=== PATIENT | male | born 1950 | race Caucasian/White ===

== ENCOUNTER 2017-10-24 20:29 | Observation (INO) | payer OTHER, MEDICARE ==
[~2017-10-24] VITALS: Ht 177.8 cm; Wt 72.6 kg
[~2017-10-24 20:29] MED LIST: ACEPHEN650 MG PR; APAP325 MG PO; BISAC-EVAC10 MG PR; CLONAZEPAM0.5 MG PO; CLOZAPINE100 MG PO; CLOZAPINE200 M1 PO; CLOZARIL100 M1 PO; DULCOLAX5 M1 PO; DULCOLAX5 MG PO; ECOTRIN81 MG PO; FINASTERIDE5 MG PO; FLEET ENEMA 131 UNIT RC; LACTULOSE10 GM/152 PO; LACTULOSE10 GM/153 PO; LIPITOR 10MG10 MG PO; LITHIUM CARBON300 MG PO; MAALOX 225 MG/360 ML PO; MELATONIN3 MG PO; MILK OF MAGNESI30 ML PO; MIRALAX17 GM PO; MULTIVITAMIN1 TAB PO; NIACIN500 MG PO; OLANZAPINE15 M1 PO; OLANZAPINE20 MG PO; OXCARBAZEPINE600 MG PO; PRILOSEC OTC20 MG PO; PROPRANOLOL HCL20 MG PO; REMERON15 M3 PO; SENNA8.6 MG PO; ZYPREXA15 MG PO
--- NOTE | 2017-10-24 20:51 | ED NEURO DEFICIT/STROKE ---
History of Present Illness General Chief Complaint: Neuro Symptoms/ Deficit Stated Complaint: BIBA, ?STROKE Source: patient, EMS, facility Exam Limitations: dementia Allergies Coded Allergies: Penicillins (UNKNOWN 12/11/15) tuberculin, purified protein deriva (From TUBERSOL) (UNKNOWN 12/11/15) Reconcile Medications Acetaminophen (Acephen) 650 MG SUP 1 SUPP ND DAILY PRN PAIN/TEMP > 101 ( Reported) Acetaminophen (Apap) 325 MG TAB 650 MG PO Q4H PRN PAIN/TEMP>101 (Reported) Aspirin (Ecotrin) 81 MG ECT 1 TAB PO DAILY HEART/BLOOD (Reported) Atorvastatin (Atorvastatin Calcium) 10 MG TAB 10 MG PO 1700 CHOLESTEROL ( Reported) Bisacodyl (Bisac-Evac) 10 MG SUP 1 SUPP ND DAILY PRN NO BM IF MOM INEFFECTIVE (Reported) Bisacodyl (Dulcolax) 5 MG TABLET.DR 2 TAB PO BID CONSTIPATION (Reported) Clonazepam 0.5 MG TAB 2 TAB PO BID MENTAL HEALTH (Reported) Clozapine 200 MG TABLET 2 TAB PO QPM MENTAL HEALTH (Reported) Clozapine (Clozaril) 100 MG TABLET 1.5 TAB PO DAILY MENTAL HEALTH (Reported) Finasteride 5 MG TAB 1 TAB PO DAILY BPH (Reported) Fleet Enema (Fleet Enema 135 Ml) 1 UNIT LIQ 1 E RC DAILY PRN GI (Reported) Lactulose 10 GM/15 ML SOLUTION 30 ML PO EOD CONSTIPATION (Reported) Lactulose 10 GM/15 ML SOLUTION 30 ML PO QAM PRN NO BOWEL MOVEMENT (Reported) Acequia Carbonate 300 MG CAP 1 CAP PO BID MENTAL HEALTH (Reported) Magnesium Hydroxide (Milk Of Magnesia 30ML) 30 ML UDC 30 ML PO DAILY GI - NO BM IN 3 DAYS (Reported) Mirtazapine (Remeron) 15 MG TAB.RAPDIS 1 TAB PO QPM MENTAL HEALTH (Reported) Multivitamin (Multiple Vitamins) 1 TAB TAB 1 TAB PO DAILY SUPPLEMENT ( Reported) Niacin 500 MG TAB 1 TAB PO DAILY SUPPLEMENT (Reported) Olanzapine 15 MG TABLET 0.5 TAB PO QPM MENTAL HEALTH (Reported) Omeprazole (Prilosec Otc) 20 MG TCP 1 TAB PO DAILY GI (Reported) Oxcarbazepine 600 MG TAB 1 TAB PO BID SEIZURES (Reported) Polyethylene Glycol 3350 (Miralax) 17 GM PWD 17 GM PO BID GI (Reported) mix with water, juice, soda, coffee or tea PROPRANOLOL HCL (Propranolol HCl) 20 MG TAB 1 TAB PO BID UNKNOWN (Reported) SENNOSIDES (Senna) 8.6 MG TAB 2 TAB PO BID GI (Reported) Triage Nurses Notes Reviewed? yes Onset: Gradual Duration: hour(s): Timing: single episode today Severity: moderate HPI: 67YO male with hx of dementia, seizure disorder, HTN, subdural hematoma presents to ED BIBA for slurred speach and facial droop. Patient from assisted living facility. Symptoms are detected when patient was eating dinner around 5:30 PM. Patient was drooling with slurred speech and left-sided facial droop. Patient also appeared to be slumped over to the left side and neglecting his left side. Patient was last known to be well around 3 PM today during shift change. Patient currently reports no pain. He denies headache, abdominal pain, chest pain. HPI is limited due to patient's dementia. (Ginna Coppola) Vital Signs & Intake/Output Vital Signs & Intake/Output Vital Signs Date Time Temp Pulse Resp B/P B/P Pulse O2 O2 Flow FiO2 Mean Ox Delivery Rate 10/24 2222 75 20 151/82 99 Room Air Room Air 10/24 2134 98 Room Air Room Air 10/24 2133 97.0 78 18 139/92 98 Room Air Room Air 10/24 2032 97.1 81 20 139/92 100 Nasal 2.0L Cannula ED Intake and Output 10/25 0000 10/24 1200 Intake Total Output Total Balance Patient 160 lb Weight Weight Estimated Measurement Method (Agata BAHENA,Solitario Infante) Past History Travel History Traveled to [place] past 21 day No Medical History Any Pertinent Medical History? see below for history Neurological: dementia, seizure, DELRIUM TREMORS BRAIN BLEED Renal: benign prost hyperplasia Psychiatric: SCHIZOPHRENIA History of MRSA: No History of VRE: No History of CDIFF: No Surgical History Surgical History: CRANIOTOMY Psychosocial History Who do you live with Patient/Self Services at Home None What is your primary language Serbian Family History Hx Contributory? No (Ginna Coppola) Review of Systems Review of Systems Constitutional: Reports: no symptoms. EENTM: Reports: see HPI. Respiratory: Reports: no symptoms. Cardiovascular: Reports: no symptoms. GI: Reports: no symptoms. Genitourinary: Reports: no symptoms. Musculoskeletal: Reports: see HPI. Skin: Reports: no symptoms. Neurological/Psychological: Reports: see HPI. Hematologic/Endocrine: Reports: no symptoms. Immunologic/Allergic: Reports: no symptoms. All Other Systems: Reviewed and Negative (Ginna Coppola) Physical Exam Physical Exam General Appearance: well developed/nourished, alert, awake Head: atraumatic, normal appearance Eyes: Bilateral: normal appearance, PERRL, EOMI. Ears, Nose, Throat: moist mucous membrane, hearing grossly normal, pharynx normal Neck: normal inspection, supple, full range of motion Respiratory: normal breath sounds, no respiratory distress, lungs clear Cardiovascular: regular rate/rhythm Peripheral Pulses: 2+ radial (R), 2+ radial (L), 2+ dorsalis pedis (R), 2+ dorsalis pedis (L) Gastrointestinal: normal bowel sounds, soft, non-tender, no organomegaly Extremities: generalized weakness of all extremities however can move extremities against gravity equally bilaterally Psychiatric: awake, alert, oriented to self only Cranial Nerves: normal hearing, PERRL, dysarthria, left sided facial droop Coordination/Gait: tremor bilateral upper extremities Skin: intact, normal color, warm/dry Core Measures CVA/TIA Diagnosis: Yes NIH Stroke Scale NIH Stroke Scale Response Value Level of Consciousness alert 0 LOC Questions answers both correctly 0 LOC Commands obeys both correctly 0 Best Gaze normal 0 Facial Paresis minor 1 Motor Arm - Left no drift 0 Motor Arm - Right no drift 0 Motor Leg - Left no drift 0 Motor Leg - Right no drift 0 Limb Ataxia no ataxia 0 Sensory normal 0 Best Language no aphasia 0 Dysarthria mild/mod slurring words 1 Extinction and Inattention no neglect 0 Total 2 Date Last Known Well: 10/24/17 Time Last Known Well: 1500 Symptom Start Date: 10/24/17 Symptom Start Time: 1730 Reason tPA not ordered Medical Contraindication Swallow Evaluation Pass Swallow eval date 10/24/17 Swallow eval time 2247 Sepsis Present: No Sepsis Focused Exam Completed? No (Ginna Coppola) Progress Differential Diagnosis: Parmar's Palsy, drug intoxication, electrolyte imbalance, encephalitis, intracranial Hem., intracranial mass/tumor, seizure disorder, stroke Diagnostic Imaging: Viewed by Me: CT Scan. Discussed w/RAD: CT Scan. Radiology Impression: PATIENT: LUANN VANEGAS PRESENT AGE: 67 PATIENT ACCOUNT NO: [id number] : 51 LOCATION: [facility] ORDERING PHYSICIAN: Ginna CHAMBERS SERVICE DATE: 10/24/17 EXAM TYPE: CAT - CT HEAD WO IV CONTRAST EXAMINATION: CT HEAD WITHOUT CONTRAST CLINICAL INFORMATION: Facial droop. COMPARISON: CT head 03/26/2016 TECHNIQUE: Contiguous axial imaging was performed from the skull base to vertex without intravenous administration of contrast. DLP: 618.64 mGy-cm FINDINGS: There is no evidence of acute intracranial hemorrhage or territorial infarction. No abnormal mass effect or midline shift is seen. Stevenson to white matter differentiation is well preserved. No extra-axial fluid collections are identified. There is age- appropriate atrophy with mild prominence of the ventricles and the sulci and hypodensity of the periventricular white matter due to chronic small vessel ischemic disease. There is vascular calcifications of the internal carotid arteries . The osseous structures and soft tissues are normal. The mastoid air cells and visualized portions of the paranasal sinuses are well aerated. IMPRESSION: No acute intracranial pathology. DICTATED BY: Navjot Steward MD DATE/ TIME DICTATED:10/24/172117 INVESTIGATOR UTILITY BILL COMPLAINTS:DARWIN DATE/TIME TRANSCRIBED: 10/24/172117 CONFIDENTIAL, DO NOT COPY WITHOUT APPROPRIATE AUTHORIZATION. < Electronically signed in Other Vendor System> SIGNED BY: Navjot Steward MD 2123 Initial ED EKG: sinus rhythm @79bpm, borderline LAD, nonspecific ST changes, t wave flattening Prior EKG: unchanged (03/25/16) (Ruth CHAMBERS,Ginna Cr) Plan of Care: Orders Procedure Date/time Status Nothing by Mouth 10/25 B Active BASIC ELECTROLYTES PLUS BUN&CR 10/25 599 Active Teach/Educate 10/25 233 Active Pain Treatment and Response 10/25 233 Active Nutritional Intake, Monitor 10/25 233 Active Isolation 10/25 233 Active Patient Care Conference 10/25 233 Active Activity/Ambulation 10/25 233 Active LITHIUM 10/25 204 Active SWALLOW EVALUATION 10/25 199 Active PT Evaluate & Treat 10/25 199 Active Pathway - chart 10/25 199 Active House Staff 10/25 199 Active Code Status 10/25 199 Active Patient Data 10/25 32 Active Saline Lock 10/[address] in observation 10/25 28 Active Misc Message 10/25 28 Active ED Holding Orders 10/25 28 Active Vital Signs 10/25 28 Active Code Status 10/25 28 Complete VTE Mechanical Prophylaxis 10/25 UNK Active ECHOCARDIOGRAM 10/25 UNK Active RAPID VIRAL INFLUENZA A 10/24 2234 Active Intake & Output 10/24 2132 Active NIH Stroke Scale 10/24 2102 Active TROPONIN LEVEL 10/24 2040 Complete PARTIAL THROMBOPLASTIN TIME 10/24 2040 Active PROTHROMBIN TIME 10/24 2040 Active COMPREHENSIVE METABOLIC PANEL 10/24 2040 Complete CBC WITHOUT DIFFERENTIAL 10/24 2040 Complete EKG 10/24 2040 Active Current Medications Sig/Solange Start time Last Medication Dose Stop Time Status Admin Olanzapine 7.5 MG QPM 10/25 2200 AC (Zyprexa 2.5MG) Enoxaparin Sodium 40 MG DAILY 10/25 1000 AC (Lovenox) Finasteride 5 MG DAILY 10/25 1000 AC (Proscar) Divalproex Sodium 500 MG Q8 10/25 0600 AC (Depakote) Acetaminophen 325 MG Q4P PRN 10/25 214 AC (Tylenol) Acetaminophen 1,000 MG Q6P PRN 10/25 214 AC (Ofirmev) N/A 1 UNIT (No Carrier) Bisacodyl 10 MG DAILY PRN 10/25 214 AC (Dulcolax Supp) Non-Formulary 0 SEE ADMIN CRITERIA 10/25 214 UNVr Medication (NON FORMULARY) Sodium Phosphate 1 UNIT ONCE PRN 10/25 214 AC Laboratory Tests 10/24/172102: Anion Gap 15, Estimated GFR > 60, BUN/Creatinine Ratio 21.3, Glucose 107 H, Calcium 10.1, Total Bilirubin 0.4, AST 22, ALT 36, Alkaline Phosphatase 71, Troponin I < 0.01, Total Protein 7.5, Albumin 4.3, Globulin 3.2, Albumin/ Globulin Ratio 1.3, PT Pending, INR Pending, APTT Pending, CBC w Diff NO MAN DIFF REQ, RBC 4.60 L, MCV 93.9, MCH 30.6, RDW 15.1 H, MPV 8.0, Gran % 74.9, Lymphocytes % 17.5 L, Monocytes % 7.1, Eosinophils % 0.2, Basophils % 0.3, Absolute Granulocytes 4.9, Absolute Lymphocytes 1.2, Absolute Monocytes 0.5, Absolute Eosinophils 0, Absolute Basophils 0, PUBS MCHC 32.6 L Microbiology 10/24 2257 NASOPHARYN: Influenza Virus A & B Rapid Smear - RECD Dr. Parmar present to see and evaluate patient. Given symptom onset >4.5 hours ago and low NIH stroke scale this patient is not a TPA candidate. Spoke with Dr. June regarding this patient - Not TPA candidate. He recommends aspirin and carotid US in the morning. Patient passed swallow evaluation. The patient was discussed with Dr. Olson regarding telemetry admission for likely CVA. (Ginna Coppola) (Agata BAHENA,Solitario Infante) Departure Departure Disposition: STILL A PATIENT Condition: Stable Clinical Impression Primary Impression: CVA (cerebral vascular accident) Referrals: Malia Valente MD (PCP/Family) Departure Forms: Customer Survey General Discharge Information Admission Note Spoke With: Tan Olson MD Documentation of Exam: Documentation of any treatments & extenuating circumstances including Concerns Regarding Discharge (functional status, medication knowledge or non-compliance, living conditions, etc.) that warrant an admission rather than observation: [ Likely CVA with left-sided facial droop and slurred speech requiring neurology consults, aspirin, carotid ultrasound tomorrow, telemetry monitoring] (Ginna Coppola) PA/ENROLLMENT MANAGER Co-Sign Statement Statement: ED Attending supervision documentation- [] I saw and evaluated the patient. I have also reviewed all the pertinent lab results and diagnostic results. I agree with the findings and the plan of care as documented in the PA's/ENROLLMENT MANAGER's documentation. Patient presents for evaluation of a possible stroke that occurred sometime after 3 PM. Patient currently resides in an extended care facility and he apparently was last known to be normal during shift change manager at 3:00 this afternoon. Physical examination reveals a mild left facial droop. [] I have reviewed the ED Record and agree with the PA's/ENROLLMENT MANAGER's documentation. [] Additions or exceptions (if any) to the PAs/ENROLLMENT MANAGER's note and plan are summarized below: [] (Agata BAHENA,Solitario Infante) PA/ENROLLMENT MANAGER Co-Sign Statement Statement: ED Attending supervision documentation- [x] I saw and evaluated the patient. I have also reviewed all the pertinent lab results and diagnostic results. I agree with the findings and the plan of care as documented in the PA's/ENROLLMENT MANAGER's documentation. 10/24/17, 23:30.... pt with non focal exam presently, signs and symptoms concerning for tia... pt to be placed in obs. [] I have reviewed the ED Record and agree with the PA's/ENROLLMENT MANAGER's documentation. [] Additions or exceptions (if any) to the PAs/ENROLLMENT MANAGER's note and plan are summarized below: [] (Haily BAHENA,Grant العلي)
[2017-10-24 21:17] LABS: ABSOLUTE BASOPHIL COUNT 0 /CUMM (0.0-0.2); ABSOLUTE EOSINOPHIL COUNT 0 /CUMM (0.0-0.7); ABSOLUTE GRANULOCYTE CT 4.9 /CUMM (1.4-6.5); ABSOLUTE LYMPH COUNT 1.2 /CUMM (1.2-3.4); ABSOLUTE MONOCYTE COUNT 0.5 /CUMM (0.10-0.60); BASOPHIL % 0.3 % (0.0-2.0); EOSINOPHIL % 0.2 % (0-5); GRANULOCYTE % 74.9 % (42.2-75.2); HEMATOCRIT 43.2 % (42-52); MEAN CORPUSCULAR HGB 30.6 PG (27.0-31.0); MEAN CORPUSCULAR HGB CONC 32.6 G/DL (33.0-37.0); MEAN CORPUSCULAR VOLUME 93.9 FL (80.0-94.0); PLATELET COUNT 151 /CUMM (130-400); RBC DISTRIBUTION WIDTH 15.1 % (11.5-14.5); WHITE BLOOD CELL COUNT 6.6 /CUMM (4.8-10.8)
--- NOTE | 2017-10-24 21:24 | CT SCAN REPORT ---
EXAMINATION: CT HEAD WITHOUT CONTRAST CLINICAL INFORMATION: Facial droop. COMPARISON: CT head 03/26/2016 TECHNIQUE: Contiguous axial imaging was performed from the skull base to vertex without intravenous administration of contrast. DLP: 618.64 mGy-cm FINDINGS: There is no evidence of acute intracranial hemorrhage or territorial infarction. No abnormal mass effect or midline shift is seen. Stevenson to white matter differentiation is well preserved. No extra-axial fluid collections are identified. There is age-appropriate atrophy with mild prominence of the ventricles and the sulci and hypodensity of the periventricular white matter due to chronic small vessel ischemic disease. There is vascular calcifications of the internal carotid arteries . The osseous structures and soft tissues are normal. The mastoid air cells and visualized portions of the paranasal sinuses are well aerated. IMPRESSION: No acute intracranial pathology.
--- NOTE | 2017-10-24 22:02 | RADIOLOGY REPORT ---
EXAMINATION: XR PORTABLE CHEST CLINICAL INFORMATION: Altered mental status. COMPARISON: Chest x-ray 03/25/2016 TECHNIQUE: Portable frontal view of the chest was obtained. 9:13 PM FINDINGS: Chin overlies the left lung apex. Patient rotated to left. Lung volume low. No pulmonary vascular congestion. No infiltrate or pleural effusion. IMPRESSION: No acute abnormality of chest.
--- NOTE | 2017-10-25 00:49 | History & Physical ---
Rosemary BAHENA,Judy 10/25/17 0049: General Information and HPI MD Statement: I have seen and personally examined LUANN VANEGAS and documented this H&P. The patient is a 67 year old M who presented with a patient stated chief complaint of []. Exam Limitations: dementia, poor historian History of Present Illness: Patient is a 67-year-old male with past medical history of paranoid schizophrenia, primary seizure disorder, status epilepticus 2014 requiring intubation, subdural hematoma, delirium, dementia, hypertension, anxiety disorder, hypertension, hyperlipidemia presents this admission from the assisted living facility after being found to have slurred speech and facial droop. Patient has dementia and is a poor historian. History was obtained from the records. Patient was found to have drooling with slurred speech at approximately 5:30 this evening at the time of dinner noted by the assisted living facility staff. Patient had food coming out of the left side of his mouth. Per documentation patient had left arm and hand weakness and was neglecting his left side. Patient was last seen normal and in his usual state of health at approximately 3 PM. Patient denies any chest pain, headache, visual disturbances, numbness/tingling, pain, nausea/vomiting, abdominal pain. Although patient states states that he does not have the aforementioned symptoms is unclear if he completely comprehends the questions asked. Per notes patient has both fecal and urinary incontinence. Last bowel movement was on 10/24/17. Past medical history: As above Social history: Patient lives at a unknown assisted living facility, is on assist 2 for transfers, diet is a diabetic diet with ground meat and thin liquids Allergies: Penicillin, Tubersol On admission: Vitals: MAXIMUM TEMPERATURE: 97.1, heart rate: 75-81, respiration rate: 18-20, blood pressure: 139/92-151/82, 98-100% on room air Labs were all within normal limits Imaging: CT head was negative for any acute findings Chest x-ray: Was negative for any acute pathology EKG: Normal sinus rhythm at a rate of 79, left axis deviation, QTc: 464, unchanged from previous with no new ST or T-wave changes Allergies/Medications Allergies: Coded Allergies: Penicillins (UNKNOWN 12/11/15) tuberculin, purified protein deriva (From TUBERSOL) (UNKNOWN 12/11/15) Home Med list Acetaminophen (Acephen) 650 MG SUP 1 SUPP KS DAILY PRN PAIN/TEMP > 101 ( Reported) Acetaminophen (Apap) 325 MG TAB 650 MG PO Q4H PRN PAIN/TEMP>101 (Reported) Aspirin (Ecotrin) 81 MG ECT 1 TAB PO DAILY HEART/BLOOD (Reported) Atorvastatin Calcium 40 MG TABLET 1 TAB PO DAILY HEART Bisacodyl (Bisac-Evac) 10 MG SUP 1 SUPP KS DAILY PRN NO BM IF MOM INEFFECTIVE (Reported) Bisacodyl (Dulcolax) 5 MG TABLET.DR 2 TAB PO BID CONSTIPATION (Reported) Clonazepam 0.5 MG TAB 2 TAB PO BID MENTAL HEALTH (Reported) Clopidogrel Bisulfate (Plavix) 75 MG TABLET 1 TAB PO DAILY TIA Clozapine 200 MG TABLET 2 TAB PO QPM MENTAL HEALTH (Reported) Clozapine (Clozaril) 100 MG TABLET 1.5 TAB PO DAILY MENTAL HEALTH (Reported) Finasteride 5 MG TAB 1 TAB PO DAILY BPH (Reported) Fleet Enema (Fleet Enema 135 Ml) 1 UNIT LIQ 1 E RC DAILY PRN GI (Reported) Lactulose 10 GM/15 ML SOLUTION 30 ML PO EOD CONSTIPATION (Reported) Lactulose 10 GM/15 ML SOLUTION 30 ML PO QAM PRN NO BOWEL MOVEMENT (Reported) [place] Carbonate 300 MG CAP 1 CAP PO BID MENTAL HEALTH (Reported) Magnesium Hydroxide (Milk Of Magnesia 30ML) 30 ML UDC 30 ML PO DAILY GI - NO BM IN 3 DAYS (Reported) Mirtazapine (Remeron) 15 MG TAB.RAPDIS 1 TAB PO QPM MENTAL HEALTH (Reported) Multivitamin (Multiple Vitamins) 1 TAB TAB 1 TAB PO DAILY SUPPLEMENT ( Reported) Niacin 500 MG TAB 1 TAB PO DAILY SUPPLEMENT (Reported) Olanzapine 15 MG TABLET 0.5 TAB PO QPM MENTAL HEALTH (Reported) Omeprazole (Prilosec Otc) 20 MG TCP 1 TAB PO DAILY GI (Reported) Oxcarbazepine 600 MG TAB 1 TAB PO BID SEIZURES (Reported) Polyethylene Glycol 3350 (Miralax) 17 GM PWD 17 GM PO BID GI (Reported) mix with water, juice, soda, coffee or tea PROPRANOLOL HCL (Propranolol HCl) 20 MG TAB 1 TAB PO BID UNKNOWN (Reported) SENNOSIDES (Senna) 8.6 MG TAB 2 TAB PO BID GI (Reported) Past History Travel History Traveled to [place] past 21 day No Medical History Neurological: dementia, seizure, DELRIUM TREMORS BRAIN BLEED Renal: benign prost hyperplasia Psychiatric: SCHIZOPHRENIA History of MRSA: No History of VRE: No History of CDIFF: No Surgical History Surgical History: CRANIOTOMY Past Family/Social History Psychosocial History Services at Home: None Review of Systems Review of Systems Constitutional: Reports: no symptoms, see HPI. EENTM: Reports: no symptoms, see HPI. Cardiovascular: Reports: no symptoms, see HPI. Respiratory: Reports: no symptoms, see HPI. GI: Reports: no symptoms, see HPI. Genitourinary: Reports: no symptoms, see HPI. Musculoskeletal: Reports: no symptoms, see HPI. Skin: Reports: no symptoms, see HPI. Neurological/Psychological: Reports: tremors. Exam & Diagnostic Data Last 24 Hrs of Vital Signs/I&O Vital Signs Date Time Temp Pulse Resp B/P B/P Pulse O2 O2 Flow FiO2 Mean Ox Delivery Rate 10/242 75 20 151/82 99 Room Air Room Air 10/24 2134 98 Room Air Room Air 10/24 2133 97.0 78 18 139/92 98 Room Air Room Air 10/243 97.1 81 20 139/92 100 Nasal 2.0L Cannula Intake & Output 10/25 0800 10/25 0000 10/24 1600 Intake Total Output Total Balance Patient 160 lb 160 lb Weight Weight Estimated Measurement Method Physical Exam General Appearance Alert, Cooperative, No Acute Distress HEENT Atraumatic, PERRLA, EOMI, Mucous Membr. moist/pink Cardiovascular Regular Rate, Normal S1, Normal S2, No Murmurs Lungs Clear to Auscultation, Normal Air Movement Abdomen Normal Bowel Sounds, Soft, No Tenderness Neurological Normal Speech, Normal Tone, Sensation Intact, Cranial Nerves 3-12 NL, Reflexes 2+, motor strength in upper and lower extremities 4/5 Extremities No Clubbing, No Cyanosis, No Edema, Normal Pulses, No Tenderness/ Swelling Last 24 Hrs of Labs/Yann: Laboratory Tests 10/25/17 0205: [place] Cancelled 10/24/172102: Anion Gap 15, Estimated GFR > 60, BUN/Creatinine Ratio 21.3, Glucose 107 H, Calcium 10.1, Total Bilirubin 0.4, AST 22, ALT 36, Alkaline Phosphatase 71, Troponin I < 0.01, Total Protein 7.5, Albumin 4.3, Globulin 3.2, Albumin/ Globulin Ratio 1.3, PT 12.7 H, INR 1.21 H, APTT 32, CBC w Diff NO MAN DIFF REQ , RBC 4.60 L, MCV 93.9, MCH 30.6, RDW 15.1 H, MPV 8.0, Gran % 74.9, Lymphocytes % 17.5 L, Monocytes % 7.1, Eosinophils % 0.2, Basophils % 0.3, Absolute Granulocytes 4.9, Absolute Lymphocytes 1.2, Absolute Monocytes 0.5, Absolute Eosinophils 0, Absolute Basophils 0, PUBS MCHC 32.6 L, [place] 0.7 Microbiology 10/24 2977 NASOPHARYN: Influenza Virus A & B Rapid Smear - COMP Assessment/Plan Assessment: Patient is a 67-year-old male with past medical history significant for subdural hematoma, primary seizure disorder on depakote and oxycarbamazapine and paranoid schizophrenia and anxiety disorder on multiple antipsychotics and anxiolytic presenting this admission with transient left-sided weakness, facial droop which resolved prior to this admission. Patient will be observed on the telemetry floor for the following: Left sided hemiparesis and hemiplegia: Likely etiologies of these symptoms include transient ischemic attack, possible seizure, polypharmacy from multiple antipsychotics, antiepileptic, anxiolytic medications for paranoid schizophrenia , seizure disorder and anxiety disorder. - Monitor on telemetry for possible A. fib/flutter - Neurology consult - Neurochecks every 4 hours - Continue Depakote and Oxycarbamazapine - Obtain a depakote, lithium and oxycarbamazapine level - Continue olanzapine, hold clozapine - Continue clonazepam - Psych consult in AM to reevaluate psych meds - Seizure prophylaxis - Patient passed bedside swallow. NPO pending formal swallow evaluation and confirmation of diet of ground meet and thin liquids - PT/OT consult - Patient received aspirin 325mg in the ED, continue aspirin 81mg daily - Continue atorvastatin DVT PPx: Heparin SC Diet: NPO Code: DNR As Ranked By This Provider Problem List: 1. TIA (transient ischemic attack) 2. Seizure Core Measures/Misc (07/02) Acute Coronary Syndrome ACS Diagnosis: No Congestive Heart Failure Congestive Heart Failure Diagnosis No Cerebrovascular Accident CVA/TIA Diagnosis: Yes NIH Stroke Scale: Total 0 Date Last Known Well: 10/24/17 Time Last Known Well: 1500 Symptom Start Date: 10/24/17 Symptom Start Time: 1730 Reason tPA not ordered Medical Contraindication Swallow Evaluation Pass Current/Past Hx AFib/AFlutter No No Anticoagulant d/t Medical Contraindication VTE (View Protocol) VTE Risk Factors Age>40 No Mechanical VTE Prophylaxis d/t N/A MechProphylax Ordered No VTE Pharm Prophylaxis d/t NA PharmProphylax ordered Sepsis (View protocol) Sepsis Present: Karina Kenney 10/25/17 0345: General Information and HPI MD Statement: I have seen and personally examined STEFFILUANN BAIRD and documented this H&P. The patient is a 67 year old M who presented with a patient stated chief complaint of [unresponsiveness and allegedly reported left-sided hemiparesis]. Source of Information: W 10 and reports from Resident Review Statement Resident Statement: examined this patient, discussed with photo intern, agreed with photo intern, discussed with family, reviewed EMR data (avail), discussed with nursing , discussed with case mgmt, reviewed images, amended to note Other Findings: Labs, images, patient's documents and past medical history were reviewed. I agreed with all above. Briefly Past medical history: Schizophrenia paranoid type; primary seizure disorder and history of status epilepticus which required intubation in 2013; history of subdural hematoma, BPH, hyperlipidemia, hypertension This is a 67-year-old gentleman who was brought in by ambulance from [facility] for sudden onset left-sided hemiparesis and facial droop. Patient is not able to provide HPI. According to documents from SNF, yesterday around 5 PM patient was seen to have left-sided facial droop and left arm and left hand weakness. He was also noted not to be able to chew and keep the food in his mouth. His vitals at the time temperature of 98.4, pulse 88, respiratory 18, blood pressure 140/76, O2 saturation 98% in room. Patient arrived in the emergency room at 20:33 10/24/2017. At the time of admission at 11 PM 10/24/2016 patient did not have any of the aforementioned symptoms which was listed in the SNF documents. Despite not being oriented to time place and person and his inability to provide meaningful HPI patient denied any chest pain, shortness of breath, headache, particular feeling of numbness or weakness in any part of his body, nausea, vomiting. In ED vital signs remained stable. CT scan of the head without IV contrast was negative. Patient was given 1 dose of by mouth Tylenol 325 mg. Review of system: Refer to HPI. VSS. Physical exam: GA: Patient lying comfortably in bed, obvious upper extremities resting tremor Head and neck: Symmetric nasolabial folds; no drooping of the corners of the mouth Pupils are equal reactive to light; EOMI Heart: S1-S2, no gallop no murmur; lungs clear with no crackles. Abdomen is soft normal bowel sounds. Extremities: No edema, pulses are 2+ symmetric 4; Neuro exam: Alert and not oriented, patient is capable of following simple verbal commands; cranial nerves: Grossly intact; no facial weakness; upper extremities strength: 4 out of 5 and lower extremities 4 out of 5 (upper extremities is slightly weaker than the lower extremities), obvious resting tremor in bilateral upper extremities. No sensory deficits; reflexes: Knee jerk : 2+ symmetric, brachioradialis 2+ symmetric. Babinski: Downward. Pertinent data Chest x-ray: No acute abnormality of chest. CT scan of the head without IV contrast: No acute intracranial pathology. CTA of the head and neck: 1. No acute vascular abnormality. No large vessel occlusion. No significant stenosis. 2. No acute intracranial findings. CBC and chemistry: Normal; PT/INR is normal, Trop < 0.01 List of active problems: #1 episode of unresponssiveness and left-sided hemiparesis: the potential causes for this patient could be focal seizure, TIA/stroke, poly pahrmacy. #2 BPH #3 schizophrenia #4 history of constipation Plan * Admitted to telemetry for continuous neurocardiac monitoring * Neuro check every 4 hours * Received 325 mg of aspirin 80; resume 81 mg by mouth aspirin daily holding off on Plavix; pending neuro consult in the a.m. * continue statin * Olanzapine 7.5 mg by mouth at bedtime * Hold clozapine * psych consult in the a.m. to review the medications * follow neuro consult in the a.m.- consult was placed * Check lithium level and dose accordingly * check depakot level * Continue his home dose on the seizure medication * Continue Proscar * Seizure precaution, fall precaution * Swallow eval; PT/OT * Confirm his diet from long term " NDD3 with ground meats, and thin liquids * needs assist 2 for transport According to documents from SNF patient is DNR/DNI House keeping Tan Olson 10/25/17 0607: Attending MD Review Statement Attending Statement Attending MD Statement: examined this patient, discuss w/resident/PA/ONLINE MARKETING STRATEGIST, agreed w/resident/PA/ONLINE MARKETING STRATEGIST, reviewed EMR data (avail), reviewed images, amended to note Attending Assessment/Plan: CC: Observed left-sided weakness PMH: History of subdural hematoma, schizophrenia, seizure disorder, dementia, HTN, HLD, BPH Patient does not provide any history, history is obtained from documentations and ER signout. According to documentation from ECF patient was found to be changed from his baseline, suspected slurred speech, drooling, left facial droop and left-sided neglect observed around 5:30 PM, last seen normal was 3 PM. Patient does not provide any details, answers in yes or no, follows some instructions. Vitals: Afebrile, pulse in 70s, RR 20, blood pressure 139/92, saturating 100% on room air On exam: A answers in yes or no only, cooperative, follows few instructions, no neglect on the left side, cranial nerves intact, no obvious focalizing sign for weakness in upper or lower extremity, tremors present, rigidity, reflexes +3, no acute distress, neck supple, JVD normal, no lymphadenopathy, mucosa dry, no dependent edema, no obvious skin rashes or inflammation CVS: S1-S2, RRR. RS: Clear to auscultate bilaterally. Abdomen: Soft, NT, ND, bowel sounds present. Labs: CBC, BMP, LFT, troponin unremarkable CXR: No acute abnormality of chest. CT head: No acute intracranial pathology. ECG: No acute changes Assessment and plan 67-year-old male with extensive history of schizophrenia, seizure, dementia, subdural hematoma, HTN, HLD and BPH, requiring 2 person assist for ambulation presented in ER from long term for observed left-sided droop, slurred speech, left-sided weakness. When we examined the patient he did not notice any focalizing sign for cranial nerves or other motor deficit. Patient follows feels instructions, answers in yes or no, has tremors, increased tone, +3 reflexes. It could be seizure-like activity given his history of seizures versus TIA. Patient has polypharmacy with recently increased her dose of clozapine and also on olanzapine with multiple other psychotropic medications. Neurology was called from ER. + Seizure versus TIA + Hx History of subdural hematoma, schizophrenia, seizure disorder, dementia, HTN, HLD, BPH - Place in observation on telemetry - Continuous telemetry monitoring - Serial neuro checks - CTA head and neck - 2-D echocardiogram - Check lithium level valproic level - Seizure precaution -Neurology consult - Psychiatry consult for current polypharmacy - OT PT evaluation - Swallow evaluation - Hold olanzapine until seen by psychiatry, continue clozapine, continue aspirin , atorvastatin, rest of the home medications. - DVT prophylaxis
--- NOTE | 2017-10-25 01:32 | CT SCAN REPORT ---
EXAMINATION: CTA OF THE HEAD/NECK CLINICAL INFORMATION: Facial droop with slurred speech. Assess for thromboembolic stroke. COMPARISON: Head CT from 10/24/2017. TECHNIQUE: A routine non contrast head CT was performed followed by a 101 mL bolus of Optiray 350. Subsequent multidetector helical imaging was performed of the head and neck. Delayed post contrast imaging was also performed through the head. Multiplanar reformats and MIP were also obtained. Internal carotid artery stenoses are assessed in accordance with NASCET criteria unless otherwise indicated. 3D reformats will be created and reviewed when available. DLP: 1788 mGy-cm. FINDINGS: CT HEAD: No evidence of acute intracranial hemorrhage or territorial infarction. No abnormal mass effect or midline shift. Stevenson to white matter differentiation is preserved. No extra-axial fluid collections are identified. No hydrocephalus. Mild cerebral volume loss. No suspicious leptomeningeal or parenchymal enhancement on the post-contrast images. The osseous structures and soft tissues are normal. There is moderate opacification of the left maxillary sinus. Mild opacification of the sphenoid sinuses. The mastoid air cells and visualized portions of the paranasal sinuses are otherwise well aerated. CTA NECK: The aortic arch is of normal caliber and the origins of the great vessels are patent without evidence of significant stenosis. The cervical portion of the vertebral arteries are patent bilaterally. No luminal irregularities in the common carotid arteries and the carotid bifurcations are patent bilaterally. The cervical portion of the internal carotid arteries are of normal caliber. The laryngeal structures and pharyngeal mucosal spaces are unremarkable. The oral cavity appears normal. The parotid and submandibular glands are normal. No pathologically enlarged lymph nodes. The thyroid gland is unremarkable. The lung apices are clear without evidence of pneumothorax. Spinal alignment is maintained. Mild cervical spondylosis is noted. CTA HEAD: The intradural portion of the vertebral arteries are of normal caliber. The basilar, superior cerebellar, and posterior communicating arteries are patent. The posterior, middle, and anterior cerebral arteries are of normal caliber without evidence of significant luminal irregularity. No definite intracranial aneurysms. Gas incidentally noted in the right cavernous sinus. IMPRESSION: 1. No acute vascular abnormality. No large vessel occlusion. No significant stenosis. 2. No acute intracranial findings.
[2017-10-25 03:39] LABS: LITHIUM 0.7 mmol/L (0.6-1.2)
[2017-10-25 04:03] LABS: PT 12.7 SEC (9.4-12.5); PTT 32 SEC (25-37)
[2017-10-25 07:18] VITALS: BP 131/82
--- NOTE | 2017-10-25 14:03 | PN- Att Addend ---
Attending Addendum Attending Brief Note Patient seen and examined. 67-year-old male with history of paranoid schizophrenia, seizure disorder, subdural hematoma, dementia, anxiety disorder. Since in from his assisted living facility after found with slurred speech and facial droop. These symptoms reportedly had resolved by the time he was evaluated in the emergency room. When housestaff try to evaluate him this morning the reported that patient had blanket over his head and refused to interact with them. They were unable to obtain any reasonable information for him or examine him. By the time I examined him later in the day he was more cooperative. I found him alert but his speech was suboptimal. He would occasionally snore somewhat and occasionally speak clearly providing some short unclear answers. However when more complicated questions were asked it was obvious that he was confused and he would mumble most of the words. He did participate in physical examination. Heart sounds are regular with no audible murmur. Lungs are clear to auscultation bilaterally. Abdomen was soft and nontender. He had no peripheral examination. He had no facial asymmetry. He moves all his extremities spontaneously and to command. Power was 4/5 in all extremities. He could not properly participate in sensory assessment. Of note was his posture while in bed, he was leaning his head preferentially to the left side when I did try to correct him his neck was very stiff suggestive some chronicity to this posterior. Assessment It is unclear the etiology of patient's initial neurologic deficit on presentation. While a stroke has been ruled out on the CT of the head and he may have suffered a TIA, his polypharmacy may have contributed to his symptoms particularly in light of the recent changes to his medications. Also confounding the evaluation this patient's unclear baseline. I did reach out to the next of kin listed in the system but would not reply. Nursing staff did report that staff at the facility had stated that patient has slurred speech at baseline. Recommendations: -No benefit from physical therapy evaluation at present as patient is nonambulatory at baseline. -Patient has been started on antiplatelet therapy with aspirin. Recommend increasing dose of his statin therapy. -Angiography of the head and neck shows no significant carotid artery disease. Follow-up echocardiogram to rule out cardioembolic disease. -Following evaluation by the neurology service and evaluation of the echocardiogram results patient may return to his assisted living facility. Adjustment of his psychiatric medications will be deferred to the prescribing practitioner.
[2017-10-25] MEDS ORDERED: ASPIRIN81 M4 PO (14:54)
[2017-10-25] MEDS ORDERED: ATORVASTATIN CA40 M1 PO (14:54)
--- NOTE | 2017-10-25 14:56 | Patient Discharge Instructions ---
Discharge Instructions General Discharge Information You were seen/treated for: You were here with symptoms of TIA, we didnt find any any evidence of it. Neurologist doesnt think Watch for these problems: Fever, chills, confusion, sudden weakness any body part, facial droop, slurred speech Special Instructions: -Please make an appointment with PCP for follow-up -Please make an appointment with neurologist for follow-up -Please return to ED if you develop facial asymmetry, speech change from baseline, sudden weakness of any part of body or strokelike symptoms. Diet Recommended Diet: PUREE-NECTOR Activity Activity Self Limited: Yes Acute Coronary Syndrome Inclusion Criteria At DC or during hospital stay patient has or had the following: ACS DIAGNOSIS No Discharge Core Measures Meds if any: Prescribed or Continued at Discharge Meds if any: NOT Prescribed or Continued at Discharge Congestive Heart Failure Inclusion Criteria At DC or during hospital stay patient has or had the following: CHF DIAGNOSIS No Discharge Core Measures Meds if any: Prescribed or Continued at Discharge Meds if any: NOT Prescribed or Continued at Discharge Cerebrovascular accident Inclusion Criteria At DC or during hospital stay patient has or had the following: CVA/TIA Diagnosis Yes Discharge Core Measures Meds if any: Prescribed or Continued at Discharge Antithrombotic Yes Statin (required if LDL =>70) Yes Meds if any: NOT Prescribed or Continued at Discharge Venous thromboembolism Inclusion Criteria VTE Diagnosis No VTE Type NONE VTE Confirmed by (Test) NONE Discharge Core Measures - Per Current guidelines, there needs to be overlap - treatment for the first 5 days of Warfarin therapy. - If discharged on Warfarin prior to 5 days of - overlap therapy, the patient will need to be - assessed for post discharge needs including - *Post discharge parental anticoagulation - *Warfarin and/or parental anticoagulation education - *Follow up date to check INR post discharge At least 5 days overlap therapy as Inpatient No Meds if any: Prescribed or Continued at Discharge Note: Overlap Therapy is Warfarin and Anticoagulant Meds if any: NOT Prescribed or Continued at Discharge
[2017-10-25 16:00] VITALS: BP 148/85
--- NOTE | 2017-10-25 16:38 | Cons- Neurology ---
General Information and HPI Consulting Request Date of Consult: 10/25/17 Requested By: Nito BAHENA,Klaudia Reason for Consult: slurred speech and facial droop Source of Information: patient, old records Exam Limitations: unable to give history History of Present Illness: 67-year-old man syndrome from [facility] due to facial droop and slurring of speech. There was reportedly left arm weakness and neglect, a change from his usual baseline. According to the record he was seen neurologically for a possible [place] [address] June and at that time had evidence of a dementia, oriented only to name, dysarthria, inability to follow commands and increased tone. There is a history of seizures, subdural hematoma, paranoid schizophrenia. He also has vascular risk factors such as hypertension and hyperlipidemia. Medications on admission include aspirin 81 MG and atorvastatin 10 MG along with clozapine, clonazepam, mirtazapine, olanzapine and lithium Allergies/Medications Allergies: Coded Allergies: Penicillins (UNKNOWN 12/11/15) tuberculin, purified protein deriva (From TUBERSOL) (UNKNOWN 12/11/15) Home Med List: Acetaminophen (Acephen) 650 MG SUP 1 SUPP FL DAILY PRN PAIN/TEMP > 101 ( Reported) Acetaminophen (Apap) 325 MG TAB 650 MG PO Q4H PRN PAIN/TEMP>101 (Reported) Aspirin (Ecotrin) 81 MG ECT 1 TAB PO DAILY HEART/BLOOD (Reported) Aspirin (Aspirin*) 81 MG TAB.CHEW 1 TAB PO DAILY TIA Atorvastatin (Atorvastatin Calcium) 10 MG TAB 10 MG PO 1700 CHOLESTEROL ( Reported) Atorvastatin Calcium 40 MG TABLET 1 TAB PO DAILY HEART Bisacodyl (Bisac-Evac) 10 MG SUP 1 SUPP FL DAILY PRN NO BM IF MOM INEFFECTIVE (Reported) Bisacodyl (Dulcolax) 5 MG TABLET.DR 2 TAB PO BID CONSTIPATION (Reported) Clonazepam 0.5 MG TAB 2 TAB PO BID MENTAL HEALTH (Reported) Clozapine 200 MG TABLET 2 TAB PO QPM MENTAL HEALTH (Reported) Clozapine (Clozaril) 100 MG TABLET 1.5 TAB PO DAILY MENTAL HEALTH (Reported) Finasteride 5 MG TAB 1 TAB PO DAILY BPH (Reported) Fleet Enema (Fleet Enema 135 Ml) 1 UNIT LIQ 1 E RC DAILY PRN GI (Reported) Lactulose 10 GM/15 ML SOLUTION 30 ML PO EOD CONSTIPATION (Reported) Lactulose 10 GM/15 ML SOLUTION 30 ML PO QAM PRN NO BOWEL MOVEMENT (Reported) [place] Carbonate 300 MG CAP 1 CAP PO BID MENTAL HEALTH (Reported) Magnesium Hydroxide (Milk Of Magnesia 30ML) 30 ML UDC 30 ML PO DAILY GI - NO BM IN 3 DAYS (Reported) Mirtazapine (Remeron) 15 MG TAB.RAPDIS 1 TAB PO QPM MENTAL HEALTH (Reported) Multivitamin (Multiple Vitamins) 1 TAB TAB 1 TAB PO DAILY SUPPLEMENT ( Reported) Niacin 500 MG TAB 1 TAB PO DAILY SUPPLEMENT (Reported) Olanzapine 15 MG TABLET 0.5 TAB PO QPM MENTAL HEALTH (Reported) Omeprazole (Prilosec Otc) 20 MG TCP 1 TAB PO DAILY GI (Reported) Oxcarbazepine 600 MG TAB 1 TAB PO BID SEIZURES (Reported) Polyethylene Glycol 3350 (Miralax) 17 GM PWD 17 GM PO BID GI (Reported) mix with water, juice, soda, coffee or tea PROPRANOLOL HCL (Propranolol HCl) 20 MG TAB 1 TAB PO BID UNKNOWN (Reported) SENNOSIDES (Senna) 8.6 MG TAB 2 TAB PO BID GI (Reported) Current Medications: Current Medications Sig/Solange Start time Last Medication Dose Route Stop Time Status Admin Acetaminophen 325 MG Q4P PRN 10/25 214 AC PO Acetaminophen 1,000 MG Q6P PRN 10/25 214 AC N/A 1 UNIT IV Aspirin 81 MG DAILY 10/25 1000 AC 10/25 PO 0952 Aspirin 0 .STK-MED ONE 10/24 2255 DC PO Aspirin 325 MG ONCE ONE 10/24 2245 DC 10/24 PO 10/24 2246 2257 Atorvastatin Calcium 10 MG 1700 10/25 1700 DC PO Atorvastatin Calcium 40 MG 1700 10/25 1700 AC PO Bisacodyl 10 MG DAILY PRN 10/25 0215 AC FL Carbamazepine 400 MG BID 10/25 1000 AC 10/25 PO 0952 Divalproex Sodium 500 MG Q8 10/25 0600 AC 10/25 PO 1423 Enoxaparin Sodium 40 MG DAILY 10/25 1000 AC 10/25 SC 0952 Finasteride 5 MG DAILY 10/25 1000 AC 10/25 PO 0952 Olanzapine 7.5 MG QPM 10/25 2200 AC PO Sodium Phosphate 1 UNIT ONCE PRN 10/25 0215 AC FL Review of Systems Review of Systems: Limited due to the patient's mental state. He was able to deny headache chest pain and dyspnea. He also denied vision loss and he denied numbness or weakness of either side Past History Travel History Traveled to [place] past 21 day No Medical History Neurological: dementia, seizure, DELRIUM TREMORS BRAIN BLEED Cardiovascular: NONE Respiratory: NONE Gastrointestinal: NONE Hepatic: NONE Renal: benign prost hyperplasia Musculoskeletal: NONE Psychiatric: SCHIZOPHRENIA Endocrine: NONE Blood Disorders: NONE Surgical History Surgical History: CRANIOTOMY Psychosocial History Services at Home: None Smoking Status: Unknown If Ever Smoked Exam & Diagnostic Data Vital Signs and I&O Vital Signs Date Time Temp Pulse Resp B/P B/P Pulse O2 O2 Flow FiO2 Mean Ox Delivery Rate 10/25 1539 98.6 73 18 148/85 98 Room Air 10/25 0718 97.6 73 20 131/82 98 Room Air 10/25 0717 97.6 73 20 131/81 98 Room Air 10/25 0539 97.7 69 22 120/61 98 Room Air 10/24 2222 75 20 151/82 99 Room Air Room Air 10/24 2135 98 Room Air Room Air 10/24 2134 97.0 78 18 139/92 98 Room Air Room Air 10/24 2033 97.1 81 20 139/92 100 Nasal 2.0L Cannula Intake & Output 10/25 1600 10/25 0800 10/25 0000 Intake Total 200 Output Total 500 Balance -300 Intake, Oral 200 Output, Urine 500 Patient 160 lb 160 lb Weight Weight Estimated Measurement Method Physical Exam: Chronically ill-appearing and lying calmly and appeared in no apparent distress Neck supple No carotid bruits or murmur Opened eyes to voice and stayed awake. Follows some simple commands but does not appear to understand others. Can produce clear single words but conversation becomes unintelligible. Not oriented to month year or current location. Does not know reason for his presentation. Eye movements are full without nystagmus Visual duran full Pupils small but equal round and reactive. No evident facial asymmetry and he denies sensory loss on either side of face. Tongue protrusion midline, uvula elevates midline. Motor exam disclosed increased tone in the 4 extremities, bilaterally equal. 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 Not cooperative for further motor testing, could not check adequately for coordination. He responds to touch from both sides. Tendon reflexes are present and symmetric with downgoing toes Last 48 Hours of Lab Results: Laboratory Tests 10/25 10/25 10/24 0183 2823 0690 Chemistry Sodium (137 - 145 mmol/L) 145 145 Potassium (3.5 - 5.1 mmol/L) 4.0 3.9 Chloride (98 - 107 mmol/L) 109 H 103 Carbon Dioxide (22 - 30 mmol/L) 24 26 Anion Gap (5 - 16) 12 15 BUN (9 - 20 mg/dL) 17 17 Creatinine (0.7 - 1.2 mg/dL) 0.6 L 0.8 Estimated GFR (>60 ml/min) > 60 > 60 BUN/Creatinine Ratio (7 - 25 %) 28.3 H 21.3 Glucose (65 - 99 mg/dL) 107 H Calcium (8.4 - 10.2 mg/dL) 10.1 Total Bilirubin (0.2 - 1.3 mg/dL) 0.4 AST (17 - 59 U/L) 22 ALT (21 - 72 U/L) 36 Alkaline Phosphatase (< 127 U/L) 71 Troponin I (<0.11 ng/ml) < 0.01 Total Protein (6.3 - 8.2 g/dL) 7.5 Albumin (3.5 - 5.0 g/dL) 4.3 Globulin (1.9 - 4.2 gm/dL) 3.2 Albumin/Globulin Ratio (1.1 - 2.2 %) 1.3 Coagulation PT (9.4 - 12.5 SEC) 12.7 H INR (0.90 - 1.17) 1.21 H APTT (25 - 37 SEC) 32 Hematology CBC w Diff NO MAN DIFF REQ WBC (4.8 - 10.8 /CUMM) 6.6 RBC (4.70 - 6.10 /CUMM) 4.60 L Hgb (14.0 - 18.0 G/DL) 14.1 Hct (42 - 52 %) 43.2 MCV (80.0 - 94.0 FL) 93.9 MCH (27.0 - 31.0 PG) 30.6 RDW (11.5 - 14.5 %) 15.1 H Plt Count (130 - 400 /CUMM) 151 MPV (7.4 - 10.4 FL) 8.0 Gran % (42.2 - 75.2 %) 74.9 Lymphocytes % (20.5 - 51.1 %) 17.5 L Monocytes % (1.7 - 9.3 %) 7.1 Eosinophils % (0 - 5 %) 0.2 Basophils % (0.0 - 2.0 %) 0.3 Absolute Granulocytes (1.4 - 6.5 /CUMM) 4.9 Absolute Lymphocytes (1.2 - 3.4 /CUMM) 1.2 Absolute Monocytes (0.10 - 0.60 /CUMM) 0.5 Absolute Eosinophils (0.0 - 0.7 /CUMM) 0 Absolute Basophils (0.0 - 0.2 /CUMM) 0 PUBS MCHC (33.0 - 37.0 G/DL) 32.6 L Toxicology [place] (0.6 - 1.2 mmol/L) Cancelled 0.7 Imaging/Other Studies: CTA: No acute vascular abnormality. No large vessel occlusion. No significant stenosis. CT head: No evidence of acute intracranial hemorrhage or territorial infarction. No abnormal mass effect or midline shift. Stevenson to white matter differentiation is preserved. No extra-axial fluid collections are identified. No hydrocephalus. Mild cerebral volume loss. Assessment/Plan Assessment: Transient left facial and arm weakness. Currently no focal signs on the bedside exam but in view of risk factors probable transient ischemic attack. Recommendations: Continue aspirin 81 MG daily Add Plavix 75 MG daily Increase atorvastatin to 40 mg daily In view of the patient's overall status of severe neurologic disability do not feel that he would be a candidate for endarterectomy if stenosis of the carotids were present nor for full anticoagulation, therefore would defer Dopplers and echocardiogram. If stable after a period of observation would return the patient to his ECF Consult Acknowledgment - Thank you for your consult request.
[2017-10-25 22:45] VITALS: BP 130/72
--- NOTE | 2017-10-26 06:23 | Event Note ---
Event Note Event Note: Nurse paged from the ED stating patient is having a stroke Examined the patient, he was responsive to sternal rub - would wake up for a few seconds and fall back to sleep, miosis was present on physical exam. Vital signs were stable. B. Patient is on multiple antiepileptic medications and antipsychotics. Symptoms of lethargy likely secondary to medications. Valproic acid level ordered Ammonia level ordered - can have valproic acid induced encephalopathy with hyperammonia Depakote level ordered
[2017-10-26] MEDS ORDERED: PLAVIX75 M1 PO (07:14)
--- NOTE | 2017-10-26 07:16 | PN- Housestaff ---
See Addendum Subjective Follow-up For: TIA Tele-Events Since Last Visit: no over night acute events Subjective: Patient doing much better today, in a good mood. Alert but not oriented to time and place. Following simple directions answering questions and clear words. Allowed me to perform physical examination today. Review of Systems Constitutional: Reports: see HPI. Objective Last 24 Hrs of Vital Signs/I&O Vital Signs Date Time Temp Pulse Resp B/P B/P Pulse O2 O2 Flow FiO2 Mean Ox Delivery Rate 10/26 0745 96.0 88 192/98 10/26 0725 98.0 73 20 113/68 98 Room Air 10/26 0551 97.8 74 18 126/81 99 Room Air 10/25 2247 96.7 64 18 130/72 98 Room Air 10/25 2245 96.7 64 20 130/72 98 Room Air 10/25 1956 97.1 74 20 140/81 100 Room Air 10/25 1600 98.6 73 18 148/85 98 Room Air 10/25 1539 98.6 73 18 148/85 98 Room Air Intake & Output 10/26 1600 10/26 0800 10/26 0000 Intake Total 0 25 Output Total Balance 0 25 Intake, Oral 0 25 Physical Exam General Appearance: Alert, No Acute Distress Cardiovascular: Normal S1, Normal S2 Lungs: Clear to Auscultation Neurological: Sensation Intact, Reflexes 2+, No nystagmus, no evident facial asymmetry, increased tone in all 4 extremities Current Medications: Current Medications Sig/Solange Start time Last Medication Dose Route Stop Time Status Admin Acetaminophen 325 MG Q4P PRN 10/25 0215 AC PO Acetaminophen 1,000 MG Q6P PRN 10/25 021 AC N/A 1 UNIT IV Aspirin 81 MG DAILY 10/25 1000 AC 10/25 PO 0952 Atorvastatin Calcium 10 MG 1700 10/25 1700 DC PO Atorvastatin Calcium 40 MG 1700 10/25 1700 AC 10/25 PO 1824 Bisacodyl 10 MG DAILY PRN 10/25 0215 AC AK Carbamazepine 400 MG BID 10/25 1000 AC 10/25 PO 2228 Cephalexin 0 .STK-MED ONE 10/26 0356 DC PO Clopidogrel Bisulfate 0 .STK-MED ONE 10/25 1829 DC PO Clopidogrel Bisulfate 75 MG DAILY 10/25 1813 AC 10/25 PO 1829 Divalproex Sodium 500 MG Q8 10/25 0600 AC 10/25 PO 2228 Enoxaparin Sodium 40 MG DAILY 10/25 1000 AC 10/25 SC 0952 Finasteride 5 MG DAILY 10/25 1000 AC 10/25 PO 0952 Olanzapine 7.5 MG QPM 10/25 2200 AC 10/25 PO 2228 Sodium Phosphate 1 UNIT ONCE PRN 10/25 0215 AC AK Last 24 Hrs of Lab/Yann Results Last 24 Hrs of Labs/Mics: Laboratory Tests 10/26/1737: Anion Gap 14, Estimated GFR > 60, BUN/Creatinine Ratio 26.7 H 10/26/1737: Ammonia 21, Valproic Acid 48.6 L, Carbamazepine 8.1 Assessment/Plan Assessment: Patient is a 67-year-old male with past medical history significant for subdural hematoma, primary seizure disorder on depakote and oxycarbamazapine and paranoid schizophrenia and anxiety disorder on multiple antipsychotics and anxiolytic presenting this admission with transient left-sided weakness, facial droop which resolved prior to this admission. Patient is being observed on the telemetry floor for the following: #Transient left facial and arm weakness: Patient's presentation is most consistent with a transient ischemic attack. His polypharmacy may have contributed to his symptoms particularly in light of the recent changes to his medications. Neurology on board will appreciate their recommendations. * Continue aspirin Plavix and atorvastatin (statin dose increased to 40) * Continue rest of antipsychotic and antiseizure medications. * Li and carbamazepine level WNL Depakote level 48.6 * Continue seizure prophylaxis * Dr. Gupta did not show any significant stenosis. Echocardiogram pending. * Patient is nonambulatory at baseline, I don't believe he'll benefit from PT/OT consult. * Patient has passed swallow evaluation and has been started on pured nectar diet #Stable to be discharged today. Problem List: 1. TIA (transient ischemic attack) Pain Ratin Pain Location: n/a Pain Goal: Pain 4 or less Pain Plan: prn Tomorrow's Labs & Rationales: as ordered
[2017-10-26 08:00] VITALS: BP 113/68
--- NOTE | 2017-10-26 08:51 | Discharge Summary ---
Visit Information Visit Dates Admission Date: 10/25/17 Discharge Date: 10/26/2017 Hospital Course Course Attending Physician: Klaudia Beauchamp MD Primary Care Physician: Ambrosio BAHENA,[facility] Course: Patient is a 67-year-old male with history of seizure disorder(2013), history of subdural hematoma,paranoid schizophrenia, dementia, dysarthria, hypertension, hyperlipidemia BIBA from an ECF/ [place] due to facial droop and slurring of the speech, along with left arm weakness and neglect which is changed from his baseline. Probability TIA (in view of risk factors) At the time of presentation in emergency department symptoms were resolved. CT scan of the head did not show any acute abnormality including hemorrhage and infarct. CTA was done which did not show any acute vascular abnormality. He recovered completely. We took the consult from neurologist and he advised to continued patient on tab aspirin and start on tab Plavix 75 mgs daily, increase the dose of tablet atorvastatin 40 mgs daily.They also suggested that as patient 's overall status of severe neurological disability, does not seems to be a candidate for endarterectomy and anticoagulation, so they suggested that patient should not undergo for Doppler and echocardiogram. We discharge the patient on same medication as before with few changes.We advised to take an appointment with PCP for further follow-up and neurologist if patient may again develop similar changes. We also want him to follow-up with his primary psychiatrist for further management and adjustment in the drugs. Allergies: Coded Allergies: Penicillins (UNKNOWN 12/11/15) tuberculin, purified protein deriva (From TUBERSOL) (UNKNOWN 12/11/15) Disposition Summary Disposition Principal Diagnosis: Probability TIA (in view of risk factors) Additional Diagnosis: Seizure disorder(2013), History of subdural hematoma, Paranoid schizophrenia, Dementia, Dysarthria, Hypertension, Hyperlipidemia Discharge Disposition: SNF Discharge Instructions General Discharge Information Code Status: Do Not Resucitate/Intubat Patient's Diet: Puree and nector thick diet Patient's Activity: As tolerated, take all fall precautions Follow-Up Instructions/Appts: Please take an appointment to PCP for further follow-up. We advised to follow-up in ED, didn't have any symptoms of stroke including weakness in the limb, slurred speech. Please take the medication as advised. Follow-up with prescribing practitioner for monitoring of response to his psychiatric medications. Medications at Discharge Discharge Medications: Stop taking the following medications: Atorvastatin (Atorvastatin Calcium) 10 MG TAB ORAL 5 PM Continue taking these medications: Aspirin (Ecotrin) 81 MG ECT 1 Tablet ORAL DAILY Comments: PER PT MAR FROM FACILITY Acetaminophen (Acephen) 650 MG SUP 1 SUPPOSITORY RECTALLY DAILY as needed for PAIN/TEMP > 101 Comments: NTE 4GM IN 24 H PER MAR FROM FACILITY Acetaminophen (Apap) 325 MG TAB 650 Milligram ORAL Q4H as needed for PAIN/TEMP>101 Comments: NTE 4GM IN 24H PER MAR FROM FACILITY Clonazepam (Clonazepam) 0.5 MG TAB 2 Tablet ORAL TWICE DAILY Comments: PER MED LIST FROM FACILITY Clozapine (Clozapine) 200 MG TABLET 2 Tablet ORAL Every night Finasteride (Finasteride) 5 MG TAB 1 Tablet ORAL DAILY Comments: PER MED LIST FROM FACILITY [place] Carbonate ([place] Carbonate) 300 MG CAP 1 Capsule ORAL TWICE DAILY Comments: PER MED LIST FROM FACILITY Mirtazapine (Remeron) 15 MG TAB.RAPDIS 1 Tablet ORAL Every night Multivitamin (Multiple Vitamins) 1 TAB TAB 1 Tablet ORAL DAILY Comments: PER MED LIST FROM FACILITY Niacin (Niacin) 500 MG TAB 1 Tablet ORAL DAILY Comments: PER MED LIST FROM FACILITY Oxcarbazepine (Oxcarbazepine) 600 MG TAB 1 Tablet ORAL TWICE DAILY Comments: PER MED LIST FROM FACILITY Polyethylene Glycol 3350 (Miralax) 17 GM PWD 17 Gram ORAL TWICE DAILY Instructions: mix with water, juice, soda, coffee or tea Comments: PER MED LIST FROM FACILITY Omeprazole (Prilosec Otc) 20 MG TCP 1 Tablet ORAL DAILY Comments: PER MED LIST FROM FACILITY PROPRANOLOL HCL (Propranolol HCl) 20 MG TAB 1 Tablet ORAL TWICE DAILY Comments: PER MED LIST FROM FACILITY SENNOSIDES (Senna) 8.6 MG TAB 2 Tablet ORAL TWICE DAILY Comments: PER MED LIST FROM FACILITY Magnesium Hydroxide (Milk Of Magnesia 30ML) 30 ML UDC 30 Milliliters ORAL DAILY Comments: PER MED LIST FACILITY - STEP 1 Bisacodyl (Bisac-Evac) 10 MG SUP 1 SUPPOSITORY RECTALLY DAILY as needed for NO BM IF MOM INEFFECTIVE Comments: PER MED LIST FROM FACILITY - STEP 2 Fleet Enema (Fleet Enema 135 Ml) 1 UNIT LIQ 1 Enema RECTAL DAILY as needed for GI Comments: PER MED LIST FROM FACILITY - STEP 3 Lactulose (Lactulose) 10 GM/15 ML SOLUTION 30 Milliliters ORAL Every other day Qty = 473 Olanzapine (Olanzapine) 15 MG TABLET 0.5 Tablet ORAL Every night Lactulose (Lactulose) 10 GM/15 ML SOLUTION 30 Milliliters ORAL Every Morning as needed for NO BOWEL MOVEMENT Bisacodyl (Dulcolax) 5 MG TABLET.DR 2 Tablet ORAL TWICE DAILY Clozapine (Clozaril) 100 MG TABLET 1.5 Tablet ORAL DAILY Start taking the following new medications: Atorvastatin Calcium (Atorvastatin Calcium) 40 MG TABLET 1 Tablet ORAL DAILY Qty = 30 No Refills Clopidogrel Bisulfate (Plavix) 75 MG TABLET 1 Tablet ORAL DAILY Qty = 30 No Refills Copies To: Ambrosio BAHENA,Malia Attending MD Review Statement Documenting Attending: Klaudia Beauchamp MD Other Findings: Discharge in stable condition.
[2017-10-26 10:41] VITALS: BP 130/80
== END 2017-10-26 11:50 ==
LOC: ERH 20:29 → ERHI 10-25 00:29
PROVIDERS: Physician Assistant
DX: G45.9 Transient cerebral ischemic attack, unspecified (principal); F20.0 Paranoid schizophrenia; R56.9 Unspecified convulsions; F03.90 Unspecified dementia, unspecified severity, without behavioral disturbance, psychotic disturbance, mood disturbance, and anxiety; I10 Essential (primary) hypertension; F41.9 Anxiety disorder, unspecified; E78.5 Hyperlipidemia, unspecified; R47.1 Dysarthria and anarthria; Z79.82 Long term (current) use of aspirin; N40.0 Benign prostatic hyperplasia without lower urinary tract symptoms
CPT/HCPCS: 71045; 82436; 87804; 87804-59; 92610-GN; 93005; 93010; 96372; G0378; G8996-GN; G8997-GN; J1650; J3490